=== PATIENT | male | born 1975 | race Caucasian/White ===

== ENCOUNTER 2018-09-10 00:23 | Emergency (ER) | payer BC, OTHER ==
--- NOTE | 2018-09-10 00:51 | ER ---
Nurse's Notes [facility] Name: Wilbur Vigil Age: 42 yrs Sex: Male : 1975 Arrival Date: 09/10/2018 Time: 00:26 Bed 14 Private MD: Diagnosis: Other marginal perforations of tympanic membrane, right ear-Traumatic Presentation: 09/10 00:40 Presenting complaint: Patient states: Was working this morning and was hit with a tree ao hi his right ear. Patient continue to work and drove back home until discovered and object in the right ear. Patient reported pain but denies nausea, vomiting, dizziness or vertigo. Transition of care: patient was not received from another setting of care. Onset of symptoms was September 09, 2018 at 11:00. Risk Assessment: Do you want to hurt yourself or someone else? Patient reports no desire to harm self or others. Initial Sepsis Screen: Does the patient meet any 2 criteria? No. Patient's initial sepsis screen is negative. Does the patient have a suspected source of infection? No. Patient's initial sepsis screen is negative. Care prior to arrival: None. 00:40 Method Of Arrival: Ambulatory ao 00:40 Acuity: FARIDA 3 ao Historical: - Allergies: 00:45 No Known Allergies; ao - Home Meds: 00:45 None [Active]; ao - PMHx: 00:45 None; ao - PSHx: 00:45 None; ao - Immunization history:: Adult Immunizations up to date. - Social history:: Smoking status: Patient/guardian denies using tobacco, Patient uses alcohol, occasionally. Patient/guardian denies using street drugs, IV drugs. - Ebola Screening: : Patient negative for fever greater than or equal to 101.5 degrees Fahrenheit, and additional compatible Ebola Virus Disease symptoms Patient denies exposure to infectious person Patient denies travel to an Ebola-affected area in the 21 days before illness onset. Screenin:47 Abuse screen: Denies threats or abuse. Denies injuries from another. Nutritional ao screening: No deficits noted. Tuberculosis screening: No symptoms or risk factors identified. Fall Risk None identified. Assessment: 00:46 General: Appears in no apparent distress. comfortable, Behavior is calm, cooperative, ao appropriate for age. Pain: Complains of pain in right ear Pain does not radiate. Pain currently is 8 out of 10 on a pain scale. Neuro: Level of Consciousness is awake, alert, obeys commands, Oriented to person, place, time, situation, Appropriate for age Moves all extremities. Full function Speech is normal, Facial symmetry appears normal, Pupils are PERRLA. Cardiovascular: Capillary refill < 3 seconds Patient's skin is warm and dry. Respiratory: Airway is patent Respiratory effort is even, unlabored, Respiratory pattern is regular, symmetrical, Breath sounds are clear bilaterally. GI: Abdomen is flat. : No signs and/or symptoms were reported regarding the genitourinary system. EENT: Ear canal w/ foreign body noted from right ear. Derm: Skin is intact, Skin is pink, warm \T\ dry. normal, Skin temperature is warm. Musculoskeletal: No signs and/or symptoms reported regarding the musculoskeletal system. Vital Signs: 00:35 BP 126 / 80; Pulse 81; Resp 17; Temp 99.6; Pulse Ox 96% on R/A; mw2 ED Course: 00:26 Patient arrived in ED. ag3 00:29 Clay Anderson PA is PHCP. cp 00:29 Severo Castaneda MD is Attending Physician. cp 00:40 Rios Taylor, RN is Primary Nurse. ao 00:44 Triage completed. ao 00:46 Arm band placed on right wrist. Patient placed in an exam room, on a stretcher, on ao playground monitor, on pulse oximetry, Patient notified of wait time. 00:48 Patient has correct armband on for positive identification. Pulse ox on. NIBP on. ao 00:50 Etta Hsieh MD is Referral Physician. cp 01:20 No provider procedures requiring assistance completed. Patient did not have IV access ao during this emergency room visit. Administered Medications: 01:02 Not Given (Patient Refused): Ibuprofen 800 mg PO once ao 01:02 Drug: Tylenol #3 (300 mg-30 mg) 2 tabs Route: PO; ao Outcome: 00:51 Discharge ordered by . cp 01:20 Discharged to home ambulatory. ao 01:20 Condition: stable 01:20 Discharge instructions given to patient, Instructed on discharge instructions, follow up and referral plans. Demonstrated understanding of instructions, follow-up care, medications, Prescriptions given X 3. 01:20 Patient left the ED. ao Signatures: PageClay PA PA cp Ortiz, Alex, RN RN don Schroeder, Paramjit mw2 Yessy Allen ag3
--- NOTE | 2018-09-10 00:51 | EDPHYS ---
Physician Documentation [facility] Name: Wilbur Vigil Age: 42 yrs Sex: Male : 1975 Arrival Date: 09/10/2018 Time: 00:26 Bed 14 Private MD: ED Physician Severo Castaneda HPI: 09/10 00:45 This 42 yrs old Male presents to ER via Ambulatory with complaints of Ear cp Pain. 00:45 The patient presents with pain, that is acute, swelling, tenderness. The complaints cp affect the right ear. Onset: The symptoms/episode began/occurred today. Associated signs and symptoms: Pertinent negatives: fever, rhinorrhea, sinus trouble, sore throat, vomiting. Patient reports being struck by tree branch to right ear earlier today. Historical: - Allergies: 00:45 No Known Allergies; ao - Home Meds: 00:45 None [Active]; ao - PMHx: 00:45 None; ao - PSHx: 00:45 None; ao - Immunization history:: Adult Immunizations up to date. - Social history:: Smoking status: Patient/guardian denies using tobacco, Patient uses alcohol, occasionally. Patient/guardian denies using street drugs, IV drugs. - Ebola Screening: : Patient negative for fever greater than or equal to 101.5 degrees Fahrenheit, and additional compatible Ebola Virus Disease symptoms Patient denies exposure to infectious person Patient denies travel to an Ebola-affected area in the 21 days before illness onset. ROS: 00:45 Constitutional: Negative for body aches, chills, fever, poor PO intake. cp 00:45 Eyes: Negative for injury, pain, redness, and discharge. cp 00:45 ENT: Positive for ear pain, Negative for drainage from ear(s), sore throat, difficulty swallowing, difficulty handling secretions. 00:45 Cardiovascular: Negative for chest pain, palpitations. 00:45 Respiratory: Negative for cough, shortness of breath, wheezing. 00:45 Abdomen/GI: Negative for abdominal pain, nausea, vomiting, and diarrhea. 00:45 Skin: Negative for cellulitis, rash. 00:45 Neuro: Negative for altered mental status, headache, weakness. 00:45 All other systems are negative. Exam: 00:48 Constitutional: The patient appears in no acute distress, alert, awake, non-toxic, well cp developed, well nourished. 00:48 Head/Face: Normocephalic, atraumatic. cp 00:48 Eyes: Periorbital structures: appear normal, Conjunctiva: normal, no exudate, no injection, Sclera: no appreciated abnormality, Lids and lashes: appear normal, bilaterally. 00:48 ENT: External ear(s): erythema, on the right ear, swelling, of the pinna of right ear, mild, Ear canal(s): bleeding, in the right canal, bloody discharge, that is minimal, in the right canal, erythema, of the right canal, foreign body, piece of wood, in the right external ear canal, TM's: rupture, on the right, with bloody discharge, Examination of the other ear shows no obvious abnormality, Nose: is normal, Mouth: is normal, Posterior pharynx: is normal, airway is patent, no erythema, no exudate. 00:48 Neck: ROM/movement: is normal, is supple, without pain, no range of motions limitations, no nuchal rigidity. 00:48 Chest/axilla: Inspection: normal, Palpation: is normal, no crepitus, no tenderness. 00:48 Cardiovascular: Rate: normal, Rhythm: regular. 00:48 Respiratory: the patient does not display signs of respiratory distress, Respirations: normal, no use of accessory muscles, no retractions, no splinting, no tachypnea, labored breathing, is not present, Breath sounds: are clear throughout, no decreased breath sounds, no stridor, no wheezing. 00:48 Abdomen/GI: Exam negative for discomfort, distension, guarding, Inspection: abdomen appears normal. Vital Signs: 00:35 BP 126 / 80; Pulse 81; Resp 17; Temp 99.6; Pulse Ox 96% on R/A; mw2 Procedures: 00:50 Foreign Body Removal: piece wood from tree branch, from the right ear canal, by using alligator clamps, The patient tolerated the removal well. MDM: 00:29 Patient medically screened. cp 00:45 Differential diagnosis: otitis media, otitis externa, ruptured TM, foreign body, cp cerumen impaction, barotrauma . 00:50 Data reviewed: vital signs, nurses notes. cp 00:50 Counseling: I had a detailed discussion with the patient and/or guardian regarding: the cp historical points, exam findings, and any diagnostic results supporting the discharge/admit diagnosis, the need for outpatient follow up, an ENT specialist, to return to the emergency department if symptoms worsen or persist or if there are any questions or concerns that arise at home. Response to treatment: the patient's symptoms have markedly improved after treatment, and as a result, I will discharge patient. Administered Medications: 01:02 Not Given (Patient Refused): Ibuprofen 800 mg PO once ao 01:02 Drug: Tylenol #3 (300 mg-30 mg) 2 tabs Route: PO; ao Disposition: 14:49 Co-signature as Attending Physician, Severo Castaneda MD I agree with the assessment and wa plan of care. Disposition: 09/10/18 00:51 Discharged to Home. Impression: Other marginal perforations of tympanic membrane, right ear - Traumatic. - Condition is Stable. - Discharge Instructions: Eardrum Rupture, Adult. - Prescriptions for Ciprodex 0.3- 0.1 % Otic Drops, Suspension - instill 4 drops by OTIC route every 12 hours for 7 days , for ears ONLY. instill drops in right ear canal as directed; 1 Container. Anaprox DS 550 mg Oral Tablet - take 1 tablet by ORAL route every 12 hours As needed; 20 tablet. Tylenol- Codeine #3 300-30 mg Oral Tablet - take 2 tablets by ORAL route every 6 hours As needed no driving while taking medication; 15 tablet. - Medication Reconciliation Form, Thank You Letter, Antibiotic Education, Prescription Opioid Use form. - Follow up: Etta Hsieh MD; When: 2 - 3 days; Reason: Recheck today's complaints. - Problem is new. - Symptoms have improved. Signatures: Clay Anderson PA PA cp Ortiz, Alex, RN RN Severo Goodwin MD MD wa Corrections: (The following items were deleted from the chart) 01:20 00:51 09/10/2018 00:51 Discharged to Home. Impression: Other marginal perforations of ao tympanic membrane, right ear - Traumatic. Condition is Stable. Prescriptions for Ciprodex 0.3-0.1 % Otic Drops, Suspension - instill 4 drops by OTIC route every 12 hours for 7 days , for ears ONLY. instill drops in right ear canal as directed; 1 Container. and Forms are Medication Reconciliation Form, Thank You Letter, Antibiotic Education, Prescription Opioid Use. Follow up: Etta Hsieh; When: 2 - 3 days; Reason: Recheck today's complaints. Problem is new. Symptoms have improved. cp :09/09 00:45 Constitutional: Negative for body aches, chills, fever, poor PO intake, cp cp 09/10 00:45 Eyes: Negative for injury, pain, redness, and discharge, cp cp 09/10 00:45 ENT: Positive for ear pain, Negative for drainage from ear(s), sore throat, cp difficulty swallowing, difficulty handling secretions, cp 09/10 00:45 Cardiovascular: Negative for chest pain, palpitations, cp cp 09/10 00:45 Respiratory: Negative for cough, shortness of breath, wheezing, cp cp 09/10 00:45 Abdomen/GI: Negative for abdominal pain, nausea, vomiting, and diarrhea, cp cp 09/10 00:45 Skin: Negative for cellulitis, rash, cp cp 09/10 00:45 Neuro: Negative for altered mental status, headache, weakness, cp cp 09/10 00:45 All other systems are negative, cp cp 09/10 00:45 This 42 yrs old Male presents to ER via Ambulatory with cp complaints of Ear Pain. cp 09/10 00:45 The patient presents with an injury, pain, that is acute, cp cp 09/10 00:45 The complaints affect the right ear, cp cp 09/10 00:45 Onset: The symptoms/episode began/occurred today, cp cp 09/10 00:45 Associated signs and symptoms: Pertinent negatives: fever, sinus trouble, cp sore throat, vertigo, vomiting, cp 09/10 00:45 Patient reports being struck by tree branch to right ear earlier today. cp cp
[2018-09-10] MEDS ORDERED: CODEINE 30MG/APAP 300MG TAB ONE (01:03)
[2018-09-10] MEDS ORDERED: IBUPROFEN 400 MG TAB ONE (01:03)
== END 2018-09-10 01:20 | disposition home or self-care (01) ==
LOC: ER 00:23
PROC: 09C37ZZ Extirpation of Matter from Right External Auditory Canal, Via Natural or Artificial Opening (ICD-10-PCS; principal; 2018-09-10)
DX: H72.2X1 Other marginal perforations of tympanic membrane, right ear (principal); W22.8XXA Striking against or struck by other objects, initial encounter; Y93.89 Activity, other specified; Y92.9 Unspecified place or not applicable; Y99.0 Civilian activity done for income or pay
CPT/HCPCS: 99283